=== PATIENT | female | born 1945 | race Caucasian/White ===

== ENCOUNTER 2017-06-15 08:24 | Inpatient (IN) | payer MEDICARE, OTHER ==
[2017-06-15] VITALS (13 sets, daily range): BP systolic 110–155; BP diastolic 52–80; PULSE 52–68; RESP 10–16; O2SAT 97–99
[~2017-06-15] VITALS: Ht 162.6 cm; Wt 85.0 kg
[~2017-06-15 08:24] MED LIST: Bupivacaine Liposome 1.3% 20 mL Inj INFILTRATE SCH; DOCU-41 PO; LEVO100T6 PO; Lactated Ringer's 1,000 ML IV ONE; NAPR220C11 PO; OXYB5TAB PO; Vancomycin Inj 1,250 MG in 0.9% Sodium Chloride 250 ML IV ONE
[2017-06-15] MEDS ORDERED: CeFAZolin 2 Gm/50 mL D5W Duplex Bag IV ONE (08:38)
[2017-06-15] MEDS ORDERED: Lactated Ringer's 1,000 ML IV ONE ×2 (09:00→11:31)
[2017-06-15] MEDS ORDERED: Bupivacaine-MPF 0.75% 30 mL Inj ONE (09:41)
[2017-06-15] MEDS ORDERED: fentaNYL-PF 50 mCg/mL 2 mL Inj ONE ×2 (09:41→11:38)
[2017-06-15] MEDS ORDERED: Propofol 10,000 mCg/mL 20 mL Inj ONE (09:41)
[2017-06-15] MEDS ORDERED: Lactated Ringer's 500 ML IV PRN (10:08)
[2017-06-15] MEDS ORDERED: Lactated Ringer's 1,000 ML IV SCH (10:08)
--- NOTE | 2017-06-15 10:08 | PCM.HPANE ---
Patient Data Surgeon Admitting Provider: Attending Provider:Chepe Bess MD Primary Care Physician:Rik Ramirez MD Other Provider:Aubrey Mata Anesthesia Reason for Visit Left Knee Arthritis Ht/WT & BMI Height (Feet): 5 Height (Inches): 4 Weight (Kilograms): 87.54 Body Mass Index 32.00 Allergies Coded Allergies: erythromycin base (Verified Allergy, Unknown, rash, 06/08/17) Past Anesthesia History Anesthesia History: Denies:: Abnormal Airway, Anesthesia Reactions, Difficult Intubation, Fam Anesthesia Reaction, Fam Malignant Hypertherm, Malignant Hyperthermia Diabetes History Hx Diabetes?: No MRSA MRSA: No Medications Reported Medications Naproxen Sodium (Aleve)220 Mg Nuoljng800 Mg PO DAILY 06/08/17 Docusate Sodium (Colace)100 Mg Vrqamgd299 Mg PO BID PRN For Constipation Ref 0 06/08/17 Oxybutynin Chloride ER 5 Mg Tab.er.245 Mg PO DAILY Ref 0 06/08/17 Levothyroxine 100 Mcg Ppwtrb031 Mcg PO DAILY For Thyroid Replacement Ref 0 06/08/17 Discontinued Reported Medications Cholecalciferol (Vitamin D3) (Vitamin D3)2,000 Unit Tablet2,000 Unit PO DAILY 07/25/16 Docusate Calcium (Stool Softener)240 Mg Eyfayhe811 Mg PO DAILY 07/25/16 Multivits,Ca,Minerals/Iron/FA (Women's Daily Formula Caplet)500-18-0.4 Tablet1 Each PO DAILY 07/25/16 Vit C/Vit E/Lutein/Min/[place]-3 (Ocuvite Softgel)1 Each Capsule1 Each PO DAILY 07/25/16 Meloxicam 15 Mg Pnssic83 Mg PO DAILY 30 Days Ref 0 07/25/16 Levothyroxine 100 Mcg Xpdexh671 Mcg PO DAILY For Thyroid Replacement Ref 0 07/25/16 Calcium Citrate 250 Mg Dxmxej989 Mg PO DAILY 07/25/16 Discontinued Scripts Polyethylene Glycol 3350 (Miralax)17 Gm Powd.pack17 Gm PO DAILY PRN For Constipation 30 Days Prov:Blane Espinosa MD 08/02/16 History History of ENT Problems?: No HEENT History: Positive for:: TMJ (wears mouth guard at night ) Denies:: Abnormal Airway Cataracts Difficult Intubation Dysphagia Glaucoma Hearing Problem Sinus Problem Denture Type: None Teeth Condition: Within Normal Limits Hx of Heart Problems?: No Cardiovascular History: Denies:: AICD Abdominal Aortic Aneurism Chest Pain Congestive Heart Failure Edema Heart Murmur Hypertension Irregular Heartbeat Pacemaker Hx of Respiratory Problem?: No Respiratory History: Denies:: Asthma COPD Cough Emphysema Oxygen Administration Pneumonia Tuberculosis Use of C-PAP Machine Hx Neurologic Problems?: No Neurological History: Denies:: Alzheimer's Disease CVA Dementia Dizziness Headaches Multiple Sclerosis Parkinson's Disease Seizures Hx of GI Problems?: No Hx of Problems?: No Genitourinary History: Denies:: Kidney Stones Urinary Tract Infection Female Hx: Denies:: Currently (hysterectomy) Problems with Breasts? Skin History: Denies:: History Skin Disorders? Pressure Ulcers Hx Musculoskeletal Problems?: Yes Musculoskeletal History: Positive for:: Degenerative Joint Musculoskeletal Trauma (left knee current admission problem) Denies:: Back Injury Fibromyalgia Joint Replacement Myasthenia Gravis Systemic Lupus Hx of Psycho/Social Problems?: No Psycho Social History: Denies:: Anxiety Hx Depression Hx Surgeries?: Yes (MADDY, Rot cuff, hammertoe kandi, Moh, left knee scope) Hx Any Other Health Problems?: Yes Other History: Positive for:: Cancer (BCC facial- MOHs dissection, ) Thyroid Disease History Blood Transfusions: Positive for:: Accept Blood Products? Denies:: Blood Transfusions Hx Diabetes: No Hx Alcohol Use: YesAlcoholic Drinks Per Day: one to two drinks monthlyHx Substance Use: No Smoking Status: Smoker Current Status UNK Have You Smoked inLast 12 mo: No Stop/Bang S-Snoring: Do You Snore Loudly: No T-Tired: feel tired, fatigued: No O-Obsered: Observed not breath: No P-Blood Pressure: treated: No B- Body Mass Index > 35 kg/m2: No A- Age over 50: Yes N- Neck Large Circumference: No G- Gender Male: No OMAR Total Score: 1 Risk Assessment Category Category 1A: Patient has history of documented sleep apnea, and HAS NOT received any narcotic, sedative or anesthesia administration during this stay. Category 1B: Patient has history of documented sleep apnea, and HAS received any narcotic , sedative or anesthesia administration during this stay Category 2: Patient has SUSPECTED Obstructive Sleep Apnea, and HAS received any narcotic , sedative or anesthesia administration during this stay. Category 3: Patient has SUSPECTED Obstructive Sleep Apnea and HAS NOT received narcotic, sedative or anesthesia administration during this stay. Category 4: Outpatient in Procedural Areas with known sleep apnea or who screen positive for High Risk via the STOP/BANG questionnaire. Exam Exam General Appearance: Alert, Oriented X3, Cooperative, No Acute Distress HEENT/AIRWAY: MP 2 Lungs: Clear to Auscultation Heart: Exam Unremarkable Plan Impression Patient chart reviewed, patient interviewed and anesthestic plan with risks, benefits, and alternatives discussed, and informed consent obtained. NPO per Anesth. Guidelines: Yes ASA Physical Status: ASA2 Mod Systemic Disease Anesthetic Plan: Regional Block, SAB Bene/Risks/Altern/Consents: Yes HP Complete Prior to Induction: Yes Bill Corrigan MD Jun 15, 2017 08:19
[2017-06-15] MEDS ORDERED: Ondansetron 2 mg/mL 2 mL Inj IVPUSH PRN (10:10)
[2017-06-15] MEDS ORDERED: Dexamethasone 4 mg/mL Inj IVPUSH PRN (10:10)
[2017-06-15] MEDS ORDERED: MetoCLOpramide 5 mg/mL 2 mL Inj IVPUSH PRN (10:10)
[2017-06-15] MEDS ORDERED: HYDROmorphone 1 mg/mL Inj IVPUSH PRN (10:10)
[2017-06-15] MEDS ORDERED: Phenylephrine 10,000 mCg/mL Inj IVPUSH PRN (10:10)
[2017-06-15] MEDS ORDERED: EPHEDrine Sulfate 50 mg/mL Inj IVPUSH PRN (10:10)
[2017-06-15] MEDS ORDERED: fentaNYL-PF 50 mCg/mL 2 mL Inj IVPUSH PRN (10:10)
[2017-06-15] MEDS ORDERED: Gentamicin 40 mg/mL 2 mL Inj IRRIGATION ONE (10:23)
[2017-06-15] MEDS ORDERED: Bupivacaine-MPF 0.5% W/EPI 30 mL Inj INFILTRATE ONE (11:05)
[2017-06-15] MEDS ORDERED: Bupivacaine Liposome 1.3% 20 mL Inj INFILTRATE ONE (11:31)
--- NOTE | 2017-06-15 12:51 | DRSVH ---
PROCEDURE: X-RAY LEFT KNEE, ONE OR TWO VIEWS ([id number]) INDICATIONS: POST TKA TECHNIQUE: 2 view(s) of the knee acquired. COMPARISON: None. FINDINGS: Bones: Patient is status post knee joint arthroplasty. Hardware components are in expected position s. Visualized bony structures are intact. Soft tissues: Overlying postoperative changes are noted. IMPRESSION: Normal alignment after left total knee arthroplasty, with a surgical drain overlying oper ative bed. Dictated by: Zackary Perez M.D. on 06/15/2017 at 12:50 Approved by: Zackary Perez M.D. on 06/15/2017 at 12:50
--- NOTE | 2017-06-15 13:08 | PCM.ANEP1 ---
Post Anesthesia PACU Phase 1 Assessment Vital Signs Vital Signs Date Time Temp Pulse Resp B/P Pulse Ox O2 Delivery O2 Flow Rate FiO2 06/15/17 12:55 53 10 132/56 97 Room Air 06/15/17 12:40 36.3 56 15 139/61 99 Room Air 06/15/17 12:35 57 13 129/58 99 Room Air 06/15/17 12:30 58 13 110/65 99 Room Air 06/15/17 12:30 13 99 06/15/17 12:25 58 11 116/61 98 Room Air 06/15/17 12:20 36.0 57 12 120/58 99 Room Air 06/15/17 12:15 60 12 113/56 98 Room Air 06/15/17 12:10 68 14 111/52 98 Room Air 06/15/17 12:05 36.4 68 16 115/52 97 Room Air 06/15/17 10:08 60 16 155/77 99 Room Air 06/15/17 09:49 36.5 Anesthetic Administered: Regional Block, SAB Level of Alertness: Awake, talking Pain: No Nausea or Vomiting: No CV Function & Hydration Stable: Yes Airway Device: Oxygen Delivery: Room Air Lungs: Clear to Auscultation Dermatome Level: L3,4 (Thigh) PACU Phase 2 Assessment Complications: No Patient Instructions Provided: N/A Bill Corrigan MD Jun 15, 2017 13:08
--- NOTE | 2017-06-15 14:00 | NUR ---
POST-OP Recieved patient from PACU. IVF ongoing. Patient has dressing on left knee. Clean/dry/intact. Hemovac on left knee intact and clamped. Denies pain/nausea/SOB. Bilateral lower extremity numbness do to spinal and femoral block. Oriented to room and call light. Addendum: 06/15/17 at 1902 by ARTIS RODRIGUEZ RN Hydrocodone and toradol has been adequate for patients complaints of back pain. Pain 0/10 at this time. Tolerated dinner, no nausea or emesis noted. Stand-by assist to bedside commode. Patient tolerated well. Voiding without difficulty. Hemovac unclamped @ 1700 per orders.
[2017-06-15] MEDS ORDERED: Magnesium Hydroxide 10 mL Oral Concentration PO PRN (14:45)
[2017-06-15] MEDS ORDERED: LORazepam 0.5 mg Tablet PO PRN (14:45)
[2017-06-15] MEDS ORDERED: Alum-Mag Hydrox-Simeth 30 mL Suspension PO PRN (14:45)
[2017-06-15] MEDS ORDERED: HYDROcodone-APAP 5-325 mg Tablet PO PRN (14:45)
[2017-06-15] MEDS ORDERED: Ondansetron 2 mg/mL 2 mL Inj IV PRN (14:45)
[2017-06-15] MEDS ORDERED: diphenhydrAMINE 25 mg Capsule PO PRN (14:45)
[2017-06-15] MEDS ORDERED: Sodium Biphos-Phos 133 mL Enema RECTAL PRN (14:45)
[2017-06-15] MEDS ORDERED: Senna-Docusate 8.6-50 mg Tablet PO PRN (14:45)
[2017-06-15] MEDS ORDERED: MetoCLOpramide 5 mg/mL 2 mL Inj IV PRN (14:45)
[2017-06-15] MEDS ORDERED: Ondansetron 8 mg ODT Tablet PO PRN (14:45)
[2017-06-15] MEDS: Lactated Ringer's 1,000 ML IV SCH (15:32)
--- NOTE | 2017-06-15 15:32 | NUR ---
Evaluation completed. Please go to "Notes" then click on "Assessments and Notes" (bottom left corner of screen). Then select appropriate discipline tab on top of screen.
[2017-06-15] MEDS: Ketorolac 15 mg/mL Inj IVPUSH SCH ×2 (16:06→22:00)
[2017-06-15] MEDS: CeFAZolin 2 Gm/50 mL D5W Premix IV SCH (18:27)
[2017-06-15] MEDS: Senna-Docusate 8.6-50 mg Tablet PO SCH (19:29)
[2017-06-15] MEDS ORDERED: Vancomycin 1,000 mg/200 mL NS IV ONE (21:00)
[2017-06-15] MEDS: oxyCODONE-Acetamin 5-325 mg Tablet PO PRN (22:14)
[2017-06-15] MEDS: hydrOXYzine Pamoate 25 mg Capsule PO PRN (22:15)
[2017-06-16 00:25] VITALS: BP 129/73; PULSE 62; RESP 16; O2SAT 93
[2017-06-16] MEDS: CeFAZolin 2 Gm/50 mL D5W Premix IV SCH (02:52)
[2017-06-16] MEDS: hydrOXYzine Pamoate 25 mg Capsule PO PRN ×3 (05:16→21:36)
[2017-06-16] MEDS: Ketorolac 15 mg/mL Inj IVPUSH SCH (05:22)
[2017-06-16 05:31] VITALS: BP 132/74; PULSE 62; RESP 18; O2SAT 97
[2017-06-16 06:08] LABS: BASOPHILS % (AUTO) 0.1 % (0-3); EOSINOPHILS % (AUTO) 0.2 % (0-5); Mean Corpuscular Hemoglobin 28.3 pg (27.0-35.0); Mean Corpuscular Volume 87.1 fL (81-100); NEUTROPHILS % (AUTO) 62.5 % (40-74); Platelet Count 131 bil/L (150-400)
--- NOTE | 2017-06-16 07:15 | OP ---
[address] [address] OPERATIVE REPORT PATIENT: JULISSA GUTIERREZ : 1945 MR#: [id number] ADMIT: 06/15/2017 JOB ID: [id number] DATE OF SURGERY: 06/15/2017 PREOPERATIVE DIAGNOSIS(ES): Medical compartment osteoarthritis, left knee. POSTOPERATIVE DIAGNOSIS(ES): Tricompartment osteoarthritis, left knee. PROCEDURE: Left total knee replacement. SURGEON: Chepe Bess MD. ANIMATION PRODUCER: Vanna León PA-C. Office Assistant required due to the major complexity of the operation. PROCEDURE: The patient prepped and draped in the usual sterile fashion. A limited anteromedial approach was made. Lateral compartment was visualized, as well as patellofemoral joint. She was noted to have tricompartment osteoarthritis and we proceeded with a left total knee arthroplasty. The patella was subluxed laterally, cut transversely, sized to a 32, and drill holes placed in the distal femur. A 5 degree valgus distal femoral cut was made and the femur was sized to a 6, chamfer cutting block fixed in appropriate position. Rotation, drill holes and chamfer cuts were made. All meniscal tissue and osteophytes removed from the knee. The extramedullary tool was utilized to make a tibial cut. Tibia was sized to a D component fixed in appropriate position and rotation. Punch and drill utilized. Trial reductions confirmed a 10 mm polyethylene which produced excellent alignment, soft tissue tension and tracking. Pressurized lavage was followed by pressurized cementation of the components. Excess cement was removed during the curing process. Final construct was assembled. Tourniquet was let down. Hemostasis was achieved. Deep lavage with dilute Betadine solution per protocol. Closure with 2-0 Quill suture, followed by 2-0 Vicryl, 3-0, and a 4-0 intracuticular stitch. Steri-Strips applied. Patient tolerated procedure well. There were no complications.
--- NOTE | 2017-06-16 07:24 | NUR ---
Ortho Good pain control with percocet and visteril overnight. Tolerating liq's without nausea, diet to advance. IV SL'd. Voiding at bedside commode with minimal 1 person assist. HMV output this shift 50ml. Progressing well post-op.
[2017-06-16] MEDS: Lactated Ringer's 1,000 ML IV SCH (07:25)
[2017-06-16] MEDS: Senna-Docusate 8.6-50 mg Tablet PO SCH ×2 (08:23→20:17)
[2017-06-16 08:56] VITALS: BP 172/62; PULSE 63; RESP 19; O2SAT 99
--- NOTE | 2017-06-16 09:04 | PCM.PNORTH ---
Subjective Date of Service: Jun 16, 2017 Visit Information: Reason for Visit Left Knee Arthritis Surgery/Surgery Date L TKA 06/15/17 Post-Op Day # 1 Date of Admission: Jun 15, 2017 at 13:15 Hospital Day # Subjective Patient states she is not having very much discomfort but states she knows " that my knee is here." She describes numbness in her knee but states she has sensation elsewhere throughout her leg. She states she was able to bear weight and take a few steps when she got up to the commode. Postop General: No Complaints Pain Management: PO Objective Exam Objective Patient sitting up in bed eating breakfast Vital Signs and I/O Vital Sign - Last Date Time Temp Pulse Resp B/P Pulse Ox O2 Delivery O2 Flow Rate FiO2 06/16/17 08:56 36.6 63 19 172/62 99 Room Air Intake and Output 06/15/17 06/15/17 06/16/17 Cumulative From/Thru 15:00 23:00 07:00 06/08/17 10:31 - 06/16/17 06:01 Intake Total 1860 ml 1068 ml 1643 ml 4571 ml Output Total 35 ml 450 ml 1000 ml 1485 ml Balance 1825 ml 618 ml 643 ml 3086 ml Intake Oral 800 ml 650 ml 1450 ml IV Total 1860 ml 268 ml 993 ml 3121 ml Output Urine Total 450 ml 950 ml 1400 ml Drainage Total 0 ml 50 ml 50 ml Estimated Blood Loss 35 ml 35 ml # Bowel Movements 0 0 Lab & Micro Results Laboratory Tests Test 06/16/17 05:23 White Blood Count 12.1th/mm3 (3.8-10.1) Red Blood Count 3.81mil/mm3 (3.90-5.20) Hemoglobin 10.8g/dL (12.0-15.6) Hematocrit 33.2% (35.0-46.0) Mean Corpuscular Volume 87.1fL (81-100) Mean Corpuscular Hemoglobin 28.3pg (27.0-35.0) Mean Corpuscular Hemoglobin Concent 32.5% (32.0-37.0) Red Cell Distribution Width 12.3% (12.3-15.4) Platelet Count 131bil/L (150-400) Neutrophils (%) (Auto) 62.5% (40-74) Lymphocytes (%) (Auto) 26.0% (14-46) Monocytes (%) (Auto) 11.0% (4-12) Eosinophils (%) (Auto) 0.2% (0-5) Basophils (%) (Auto) 0.1% (0-3) Result Diagram: 06/16/17 0523 General Appearance: Alert, Oriented X3, Cooperative, No Acute Distress Extremities: No Compartment Syndrom Noted, Thigh & Calf Soft/Nontender Postop Sensory Motor: Distal Motor Intact, Movement in Toes, Distal Sensation Intact, NVI Distally SURGICAL WOUND : Drain Location Body Site: Knee Wound Drainage Type: Hemovac Activity: Ambulate with PT Assessment & Plan Impression POD#1 left total knee arthroplasty Problems: Plan Weightbearing: Weightbearing as tolerated with a front wheeled walker. DVT prophylaxis: Aspirin 81 mg twice a day 6 weeks Physical therapy for transfers, progressive ambulation, strengthening Wound care: Perioperative dressing will be changed to an island dressing with application of compression stockings tomorrow Analgesia: Continue oral pain management. Discharge plan: Discharge home in 1-2 days. Start outpatient physical therapy next week. Follow-up plan: In 2 weeks at [facility] with WILMER for wound check and at [address] Bess with x-rays Vanna León PA-C Jun 16, 2017 09:04
[2017-06-16] MEDS: oxyCODONE-Acetamin 5-325 mg Tablet PO PRN ×4 (12:11→21:37)
[2017-06-16 15:06] VITALS: BP 119/75; PULSE 59; RESP 19; O2SAT 99
--- NOTE | 2017-06-16 18:27 | NUR ---
Activity- Patient up with minimal assistance to bedside commode. Ambulated and sat up in chair this afternoon. Appears to be tolerating activity well. Left knee dressing c/d/i. Ortho checks stable. Ordered analgesia effective for incision pain.
[2017-06-16 20:02] VITALS: BP 123/74; PULSE 65; RESP 20; O2SAT 97
[2017-06-17] MEDS: Lactated Ringer's 1,000 ML IV SCH (00:05)
[2017-06-17] MEDS: oxyCODONE-Acetamin 5-325 mg Tablet PO PRN ×3 (01:31→09:31)
--- NOTE | 2017-06-17 06:03 | NUR ---
Nurse Note NOC shift Pt is alert and oriented x4, denies chest pain or SOB. Pt started regaining sensation earlier in the shift, and now has complete sensation on the left leg and knee. capillary refill <3 secs. She is able to wiggle toes and leg feels warn to touch. Pt received Percocet for pain every 4 hours per pt request with relief. She denies nausea, and was able to ambulate to the BR with standby assist. She is voiding well and also had a BM.
[2017-06-17 06:38] VITALS: BP 133/70; PULSE 62; RESP 16; O2SAT 96
--- NOTE | 2017-06-17 07:51 | PCM.PNORTH ---
Subjective Date of Service: Jun 17, 2017 Visit Information: Reason for Visit Left Knee Arthritis Surgery/Surgery Date L TKA 06/15/17 Post-Op Day # 2 Date of Admission: Jun 15, 2017 at 13:15 Hospital Day # Subjective Patient states her pain is well controlled. She states she did steps with PT yesterday and felt as if that went well. Postop General: No Complaints Pain Management: PO Objective Exam Objective Patient laying in bed Vital Signs and I/O Vital Sign - Last Date Time Temp Pulse Resp B/P Pulse Ox O2 Delivery O2 Flow Rate FiO2 06/17/17 06:38 36.7 62 16 133/70 96 Room Air Intake and Output 06/16/17 06/16/17 06/17/17 Cumulative From/Thru 15:00 23:00 07:00 06/08/17 10:31 - 06/17/17 00:30 Intake Total 960 ml 5531 ml Output Total 650 ml 2135 ml Balance 310 ml 3396 ml Intake Oral 960 ml 2410 ml IV Total 3121 ml Output Urine Total 600 ml 2000 ml Drainage Total 50 ml 100 ml Estimated Blood Loss 35 ml # Bowel Movements 1 1 Result Diagram: 06/16/17 0523 General Appearance: Alert, Oriented X3, Cooperative, No Acute Distress Extremities: Distal Pulses Palpable, No Compartment Syndrom Noted, Thigh & Calf Soft/Nontender Postop Sensory Motor: Distal Motor Intact, Movement in Toes, Distal Sensation Intact, NVI Distally SURGICAL WOUND : Wound Location/Description Perioperative dressings c/d/i Drain Location Body Site: Knee Activity: Ambulate with PT Assessment & Plan Impression POD#2 left TKA Problems: Plan Weightbearing: Weightbearing as tolerated with a front wheeled walker. DVT prophylaxis: Aspirin 81 mg twice a day 6 weeks Physical therapy for transfers, progressive ambulation, strengthening Wound care: Please remove lauren and a cotton padding. Apply an island dressing over the incision. Pull hemovac drain if present and apply compressive bandage if needed. Pull on compression stockings bilaterally. Analgesia: Percocet 5/325mg for pain. Vistaril (hydroxyzine pamoate) 25mg for discomfort/spasms. Discharge plan: Discharge home in today. Start outpatient physical therapy next week. Follow-up plan: In 2 weeks at [facility] with PA for wound check and at [address] Bess with x-Vanna Araiza PA-C Jun 17, 2017 07:51
[2017-06-17] MEDS: Senna-Docusate 8.6-50 mg Tablet PO SCH (08:11)
[2017-06-17 08:12] VITALS: BP 135/75; PULSE 63; RESP 20; O2SAT 96
--- NOTE | 2017-06-17 09:18 | NUR ---
Social Work- Initial Assessment Data: See Initial Assessment and Advance Directive Intervention for additional information. Pt is POD 2. Pt is not ready for discharge at this time, anticipate later today or tomorrow. PT has cleared pt for home with outpt services. Pt is is a 71 year old female admitted for left TKA per H&P. Pt's insurance is [employer]. Pt's PCP is Rik Ramirez MD. Pt's readmit risk score is 1. SW met with pt at bedside regarding discharge plan, SW role explained. Pt alert and oriented x3. Pt's capacity for self-care assessed. Pt resides in [place] in a home with spouse. Pt's spouse is designated salesperson fashion accessories for d/c planning. Pt is independent with ADLs and self-care. Pt uses no DME at baseline but has a cane and walker available for use. Pt drives. Pt has no history with HH services. Pt has no history with SNF services. Pt has POLST on file. SW provided Discharge planning Checklist and requested that pt contact [facility] if needs identified. SW provided phone number and plan on whiteboard. Pt agreeable. SW will continue to follow. Assessment: Pt who is independent at baseline. Plan: Pt to d/c home with her to transport via POV. No d/c needs identified at this time. EBEN will continue to follow. ANEL Claros Addendum: 06/17/17 at 0920 by AMANDA YOUNG Amended: Links added.
--- NOTE | 2017-06-17 10:54 | PCM.DIORTH ---
Ortho Discharge Instruction Date of Service: Jun 17, 2017 Dates of Hospitalization Date of Hospital Admission Jun 15, 2017 at 13:15 Providers Admitting Physician: Chepe Bess MD Primary Care Physician: Rik Ramirez MD Attending Physician: Chepe Bess MD Diet Discharge Diet: No restrictions Activity Discharge Activity-General: Be up and about, Elevate & ice extremity, Ice incision 3-5 time/day for 20min Left Lower Extremity: Weight Bearing as tolerated Discharge Assist Device: Front Wheeled Walker Dressing and Incisional Care Discharge Dressing Care: Allow Steri Stripes to fall off Discharge Hygiene: May shower (With dressing covered. Do not get dressing wet) , DO NOT soak incision under water, NO bathtub, hot tub or whirlpool Additional Instructions Discharge Instructions Weightbearing: Weightbearing as tolerated with a front wheeled walker. DVT prophylaxis: Aspirin 81 mg twice a day 6 weeks Shower instructions: Wrap your knee with saran wrap and /or use a garbage bag to keep the dressing dry. Do not get dressing or incision wet. Wound care: Use island dressing provided to you to keep incision covered. Wear compression stockings on both legs until follow up visit. Analgesia: Percocet 5/325mg for pain. Vistaril (hydroxyzine pamoate) 25mg for discomfort/spasms. Discharge plan: Discharge home today. Start outpatient physical therapy next week. Follow-up plan: In 2 weeks at [facility] with WILMER for wound check and at [address] Bess with x-rays Vanna León PA-C Jun 17, 2017 10:35
[2017-06-17] MEDS ORDERED: HYDR-3797 PO (10:56)
[2017-06-17] MEDS ORDERED: ASPI-973 PO (10:56)
[2017-06-17] MEDS ORDERED: OXYC1TAB24 PO (10:56)
--- NOTE | 2017-06-17 11:51 | NUR ---
Wound Vac Removed patient's wound vac intact. Dressing placed. Dressing changed 15 min later due to leaking of blood. New dressing clean, dry, and intact. Addendum: 06/17/17 at 1239 by ARTIS RODRIGUEZ RN Ammendment: Hemo-vac, not wound vac
--- NOTE | 2017-06-17 12:38 | NUR ---
DISCHARGE Percocet PO has been effective for pain control. Tolerating liquids PO and her diet well. Denies nausea. No emesis noted. Denies SOB. Patient has been able to get OOB with SBA and the FWW. Tolerating activity well. Dressing changed to an island dressing. Steri strips CDI. No wound redness/drainage noted. Hemovac was d/cd by Virgil Shaw RN. Tip is intact. Reinforced hemovac dressing. Voiding without any problems. IV saline lock d/cd. Discharge instructions, care notes and prescription was given to the patient and she verbalized understanding. Discharged to home with her and all her personal belongings. (Copy of D/C is in the chart).
--- NOTE | 2017-06-17 17:15 | NUR ---
Social Work- Discharge Data: EMR reviewed. Pt d/c today. Pt discharged home with to transport via POV, outpt PT services. PT cleared pt for home. No d/c needs. Assessment: Pt who is independent at baseline. Plan: Pt to d/c home with , no d/c needs ANEL Claros
--- NOTE | 2017-06-21 20:06 | PCM.DC.ORT ---
Discharge Summary Date of Service: Jun 21, 2017 Date of Hospital Admission: Jun 15, 2017 at 13:15 Date of Surgery: Jun 15, 2017 Date of Discharge: Jun 17, 2017 Reason for Hospitalization: Left knee osteoarthritis Procedures Performed: Left total knee arthroplasty Hospital Course: The patient was admitted to the hospital on 06/15/2017 and underwent the above procedure. Antibiotic prophylaxis consisting of Ancef and vancomycin. The surgeon was Dr. Bess. Patient tolerated the procedure well and was transferred to recovery room in stable condition. Patient had physical therapy to work on ambulation and transfers. Weightbearing as tolerated with walker. Pain was managed with Dilaudid, Percocet, Vistaril, Toradol. DVT prophylaxis: Aspirin and SCDs. Hospital course was uncomplicated. Patient was able to perform adequately enough to be discharged home on postop day 2. Follow-up: at [facility] 2 weeks postop for wound check and at [address] Bess with x-ray. Discharge Instructions: Weightbearing: Weightbearing as tolerated with a front wheeled walker. DVT prophylaxis: Aspirin 81 mg twice a day 6 weeks Shower instructions: Wrap your knee with saran wrap and /or use a garbage bag to keep the dressing dry. Do not get dressing or incision wet. Wound care: Use island dressing provided to you to keep incision covered. Wear compression stockings on both legs until follow up visit. Analgesia: Percocet 5/325mg for pain. Vistaril (hydroxyzine pamoate) 25mg for discomfort/spasms. Discharge plan: Discharge home today. Start outpatient physical therapy next week. Follow-up plan: In 2 weeks at [facility] with PA for wound check and at [address] Bess with x-rays Aspirin (Aspirin) 81 Mg Tablet 81 MG PO DAILY Docusate Sodium (Colace) 100 Mg Capsule 100 MG PO BID PRN PRN For Constipation Hydroxyzine Pamoate (HydrOXYzine Pamoate) 25 Mg Capsule 25 MG PO Q4H PRN PRN For Restlessness Levothyroxine (Levothyroxine) 100 Mcg Tablet 100 MCG PO DAILY Naproxen Sodium (Aleve) 220 Mg Capsule 220 MG PO DAILY Oxybutynin Chloride ER (Oxybutynin Chloride ER) 5 Mg Tab.er.24 5 MG PO DAILY oxyCODONE-Acetaminophen 5-325 mg (oxyCODONE-Acetaminophen 5-325 mg) 1 Each Tablet 1 TAB PO Q3H PRN PRN For Severe Pain Vanna León PA-C Jun 21, 2017 20:04
== END 2017-06-17 12:35 | disposition home or self-care (01) | DRG 470 ==
LOC: SAS 08:24 → OSC 13:15
PROVIDERS: ADMIT Orthopaedic Surgery; ATTEND Orthopaedic Surgery
PROC: 0SRD0J9 Replacement of Left Knee Joint with Synthetic Substitute, Cemented, Open Approach (ICD-10-PCS; principal; 2017-06-15 10:30)
DX: M17.12 Unilateral primary osteoarthritis, left knee (principal); Z79.82 Long term (current) use of aspirin